=== PATIENT | female | born 1985 | race Caucasian/White ===

== ENCOUNTER → 2020-09-07 | Outpatient (CLI) | payer BC ==
[2020-09-08 17:57] LABS: ESTRADIOL 31 pg/mL (()); FOLLICLE STIMULATING HORMONE 4.9 mIU/mL (())
[2020-09-08 18:01] LABS: HEPATITIS B SURFACE ANTIGEN Negative (Negative); HIV ANTIGEN-ANTIBODY COMBO-AMS Negative (Negative)
== END ==
LOC: COL.LAB 16:28
DX: Z11.4 Encounter for screening for human immunodeficiency virus [HIV] (principal); Z11.59 Encounter for screening for other viral diseases; Z01.83 Encounter for blood typing; Z13.21 Encounter for screening for nutritional disorder
CPT/HCPCS: 87522